=== PATIENT | female | born 1975 | race Two or more races ===

== ENCOUNTER 2021-09-13 14:45 | Emergency (ER) | payer BC ==
[2021-09-13 14:58] VITALS: BP 100/63; PULSE 72; TEMP 98.1; BMI 20.5
== END 2021-09-13 17:31 | disposition home or self-care (01) ==
LOC: JERFT 14:45 → JER 14:45 → JERFT 17:31
DX: N75.1 Abscess of Bartholin's gland (principal); Z48.01 Encounter for change or removal of surgical wound dressing
CPT/HCPCS: 99281-25